=== PATIENT | female | born 1995 | race African-American/Black ===

== ENCOUNTER 2016-11-28 22:56 | Emergency (ER) | payer OTHER ==
--- NOTE | 2016-11-29 00:29 | Ultrasound Preliminary Report ---
Exam: US Duplex Ext Veins Right IMPRESSION: No evidence for deep venous thrombosis. [facility] SITE ID: [id number]
--- NOTE | 2016-11-29 00:32 | Ultrasound Report ---
EXAM: RIGHT LOWER EXTREMITY VENOUS ULTRASOUND EXAM DATE: 11/29/2016 12:15 AM. CLINICAL HISTORY: R calf pain s/p ACL repair 11/13/16. COMPARISON: None. TECHNIQUE: Real-time sonographic vascular imaging was performed by the round kiln drawer through the lower extremity utilizing both color-flow and Doppler spectral analysis. Multiple it sales representative static allen ges were saved for review. FINDINGS: Common Femoral Vein (CFV): Normal. CFV-GSV Junction: Normal. Profunda Femoral Vein (PFV): Normal. Femoral Vein (FV) Prox: Normal. Femoral Vein (FV) Mid: Normal. Femoral Vein (FV) Dist: Normal. Popliteal Vein: Normal. Posterior Tibial Veins: Normal. Peroneal Veins: Normal. Contralateral Side CFV: Normal. Other: Anterior knee fluid collection noted. IMPRESSION: No evidence for deep venous thrombosis. [facility] Referring Provider Line: [phone] SITE ID: [id number]
--- NOTE | 2016-11-29 00:45 | ED Physician Documentation ---
History of Present Illness - Stated complaint Stated Complaint: POST OP RT CALF SWELL - Chief complaint Chief Complaint: Ext Problem - History obtained from History obtained from: Patient, Friend - History of Present Illness Timing: Today Pain level max: 4 Pain level now: 4 Improved by: nothing Worsened by: nothing - Additonal information Additional information: Patient is a 20-year-old female who is status post a right ACL repair October at [facility]. She states that she noticed increased swelling and pain to the posterior portion of the knee/right calf today. She is still in a hinged knee brace that is locked at full extension. Is undergoing physical therapy. Has not had any fevers. No redness. Review of Systems Constitutional: denies: Fever, Chills Cardiac: denies: Chest pain / pressure Respiratory: denies: Dyspnea, Cough, Wheezing GI: denies: Abdominal Pain, Nausea, Vomiting, Diarrhea Skin: denies: Rash Musculoskeletal: denies: Neck pain, Back pain Neurologic: denies: Headache PD PAST MEDICAL HISTORY - Past Medical History Past Medical History: No - Past Surgical History Past Surgical History: Yes Ortho: ACL reconstruction - Present Medications Home Medications: Ambulatory Orders Medication Instructions Recorded Confirmed No Known Home Medications [No 11/28/16 11/28/16 Known Home Medications] - Allergies Allergies/Adverse Reactions: Allergies Allergy/AdvReac Type Severity Reaction Status Date / Time loracarbef [From Lorabid] Allergy Hives Verified 11/28/16 23:21 - Living Situation Living Arrangement: reports: At home - Social History Does the pt smoke?: No Does the pt have substance abuse?: No PD ED PE NORMAL - Vitals Vital signs reviewed: Yes - General General: Alert and oriented X 3, No acute distress - Cardiac Cardiac: RRR - Respiratory Respiratory: No respiratory distress, Clear bilaterally - Abdomen Abdomen: Soft, Non tender, Non distended - Derm Derm: Warm and dry, No rash - Extremities Extremities: Other (R LE mild swelling. mild posterior calf tenderness without cord. NVI. Incisions are healing well. no evidence of infection.) - Neuro Neuro: Alert and oriented X 3 - Psych Psych: Normal mood, Normal affect Results - Vitals Vitals: Vital Signs - 24 hr 11/28/16 11/29/16 23:21 00:55 Temperature 36.2 C L Heart Rate 66 70 Respiratory 16 16 Rate Blood Pressure 125/76 133/70 H O2 Saturation 100 99 Oxygen O2 Source Room air - Rads (name of study) R LE duplex US Radiology: Prelim report reviewed, EMP read contemporaneously, See rad report ( normal) PD MEDICAL DECISION MAKING - ED course Complexity details: considered differential, d/w patient, d/w family ED course: Patient with right calf pain and swelling status post ACL repair 3 weeks ago. No evidence of DVT. No evidence of cellulitis. Appears to have peripheral edema, likely from using the leg more. We will have her follow-up with her orthopedist for further evaluation and care. Patient counseled regarding signs and symptoms for which I believe and urgent re-evaluation would be necessary. Patient with good understanding of and agreement to plan and is comfortable going home at this time This document was made in part using voice recognition software. While efforts are made to proofread this document, sound alike and grammatical errors may occur. No evidence of septic joint Departure - Departure Disposition: 01 Home, Self Care Clinical Impression: Peripheral edema Condition: Good Instructions: ED Leg Swelling Unilateral Follow-Up: your,doctor in 1 week [Other] Comments: Your ultrasound is normal tonight. Return if you worsen. Discharge Date/Time: 11/29/16 00:55
[2016-11-29 01:02] VITALS: BP 133/70
== END 2016-11-29 00:55 | disposition home or self-care (01) ==
LOC: ED 22:56
DX: R60.0 Localized edema (principal)
CPT/HCPCS: 99283

== ENCOUNTER 2018-07-06 19:40 | Emergency (ER) | payer OTHER ==
[2018-07-06 20:24] LABS: BILIRUBIN,URINE NEGATIVE (NEGATIVE); GLUCOSE, URINE (UA) NEGATIVE (NEGATIVE); KETONES,URINE (UA) NEGATIVE (NEGATIVE); LEUKOCYTE ESTERASE, URINE NEGATIVE (NEGATIVE); NITRITE,URINE NEGATIVE (NEGATIVE); OCCULT BLOOD,URINE NEGATIVE (NEGATIVE); PH,URINE 6.5 PH (5.0-7.5); PROTEIN,URINE NEGATIVE (NEGATIVE); UROBILINOGEN,URINE 0.2 (NORMAL) E.U./dL (NORMAL)
[2018-07-06 20:25] LABS: CLARITY,URINE CLEAR (CLEAR); HCG UR QUAL NEGATIVE
--- NOTE | 2018-07-06 21:13 | ED Physician Documentation ---
PD HPI FEMALE - Stated complaint Stated Complaint: FEMALE - Chief complaint Chief Complaint: Abd Pain - History obtained from History obtained from: Patient - History of Present Illness Timing - onset: Other (22-year-old woman who had a sexual encounter 2 months ago. During which the condom broke. She was worried about STDs and was seen 3 days later and tested but results were subsequently negative. More recently over the last week she has had nonpainful and non-itching foul-smelling vaginal discharge without abdominal pain or fevers.) Review of Systems Constitutional: reports: Reviewed and negative Throat: reports: Reviewed and negative Cardiac: reports: Reviewed and negative Respiratory: reports: Reviewed and negative PD PAST MEDICAL HISTORY - Past Surgical History Past Surgical History: Yes Ortho: ACL reconstruction - Present Medications Home Medications: Ambulatory Orders Medication Instructions Recorded Confirmed No Known Home Medications 11/28/16 11/28/16 - Allergies Allergies/Adverse Reactions: Allergies Allergy/AdvReac Type Severity Reaction Status Date / Time loracarbef [From Lorabid] Allergy Hives Verified 07/06/18 19:46 - Social History Does the pt smoke?: No Smoking Status: Never smoker Does the pt have substance abuse?: No PD ED PE NORMAL - Vitals Vital signs reviewed: Yes - General General: Alert and oriented X 3, No acute distress - Abdomen Abdomen: Normal bowel sounds, Soft, Non tender - Female Female : Engineering Lab Technician present (Marizol ), Other (Modest thick white dischg without tenderness or cervicitis) - Derm Derm: Normal color, Warm and dry, No rash - Neuro Neuro: Alert and oriented X 3, Normal speech - Psych Psych: Normal mood, Normal affect Results - Vitals Vitals: Vital Signs - 24 hr 07/06/18 07/06/18 19:43 21:14 Temperature 36.8 C 36.8 C Heart Rate 74 66 Respiratory 16 18 Rate Blood Pressure 125/72 121/78 O2 Saturation 99 100 Oxygen O2 Source Room air - Labs Labs: Microbiology 07/06/18 21:25 Wet Prep - Final Vaginal Laboratory Tests 07/06/18 15:54 Urine Color YELLOW Urine Clarity CLEAR Urine pH 6.5 Ur Specific [place] 1.010 Urine Protein NEGATIVE Urine Glucose (UA) NEGATIVE Urine Ketones NEGATIVE Urine Occult Blood NEGATIVE Urine Nitrite NEGATIVE Urine Bilirubin NEGATIVE Urine Urobilinogen 0.2 (NORMAL) Ur Leukocyte Esterase NEGATIVE Ur Microscopic Review NOT INDICATED Urine Culture Comments NOT INDICATED Urine HCG, Qual NEGATIVE Departure - Departure Disposition: 01 Home, Self Care Clinical Impression: Vaginal discharge Condition: Good Record reviewed to determine appropriate education?: Yes Instructions: ED VD Cervicitis Treated Comments: Tests for yeast, bacterial vaginosis, and trichomoniasis came back negative. We are testing for gonorrhea and chlamydia which can also cause the symptoms, but results will not be done for about 2 to 3 days. The antibiotics we gave you here will fully cover you for either of these entities. We will still call if either of the tests are positive. Call your doctor to arrange a follow-up appointment, make the next available appointment. In the interim, return anytime if worse or if new symptoms develop.
[2018-07-06 21:15] VITALS: BP 121/78
[2018-07-06] MEDS ORDERED: AZITHROMYCIN 250 MG TABLET PO STA (21:37)
[2018-07-06] MEDS ORDERED: LIDOCAINE 1% 2 ML VIAL MC ONE (21:37)
[2018-07-06] MEDS ORDERED: cefTRIAXone 250 MG VIAL IM ONE (21:37)
== END 2018-07-06 22:12 | disposition home or self-care (01) ==
LOC: ED 19:40
DX: N89.8 Other specified noninflammatory disorders of vagina (principal)
CPT/HCPCS: 81003; 81025; 87210; 87491; 87591; 96372; 99282; 99283; A9270; 81001; 87086

== ENCOUNTER 2018-08-07 23:53 | Emergency (ER) | payer OTHER ==
--- NOTE | 2018-08-07 23:59 | ED Physician Documentation ---
PD HPI FEMALE - Stated complaint Stated Complaint: FEM - History obtained from History obtained from: Patient - History of Present Illness Timing - onset: How many days ago (3-4) Timing - details: Gradual onset Associated symptoms: Vaginal discharge, Dysuria. No: Fever, Pelvic pain, Vaginal pain, Genital sore/lesion Contributing factors: No: Recently seen: Emergency Dept (T+R last month) - Additional information Additional information: T+R last month in this ED, given rocephin and zithromax (both one-time doses to cover possible STDs, with subsequent negative GC/C result). Approximately 2 weeks ago, patient had vaginal d/c that was similar to previous vaginal candidiasis infections, and she thus took OTC monostat which resulted in resolution of discharge. She presents at this time due to 3-4 days of gradually increasing malodorous vaginal discharge Review of Systems Constitutional: denies: Fever GI: denies: Abdominal Pain : reports: Dysuria, Discharge. 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 : None HEENT: None Psych: None Musculoskeletal: None Derm: None - Past Surgical History Past Surgical History: Yes Ortho: ACL reconstruction - Present Medications Home Medications: Ambulatory Orders Medication Instructions Recorded Confirmed Metronidazole [Flagyl] 500 mg PO BID #13 tablet 08/08/18 - Allergies Allergies/Adverse Reactions: Allergies Allergy/AdvReac Type Severity Reaction Status Date / Time loracarbef [From Lorabid] Allergy Hives Verified 07/06/18 19:46 - Social History Does the pt smoke?: No Smoking Status: Never smoker Does the pt drink ETOH?: Yes Does the pt have substance abuse?: No - Immunizations Immunizations are current?: Yes - POLST Patient has POLST: No PD ED PE NORMAL - Vitals Vital signs reviewed: Yes - General General: Alert and oriented X 3, No acute distress, Well developed/nourished - Abdomen Abdomen: Soft, Non tender PD ED PE EXPANDED - Female Female : Normal external, Vaginal Discharge (scant thick, white discharge), Stamp Machine Servicer present. No: Skin lesions, CMT Results - Vitals Vitals: Vital Signs - 24 hr 08/07/18 23:59 Temperature 36.5 C Heart Rate 57 L Respiratory 18 Rate Blood Pressure 110/80 O2 Saturation 99 Oxygen O2 Source Room air - Labs Labs: Laboratory Tests 08/08/18 00:50 Urine Color YELLOW Urine Clarity CLEAR Urine pH 6.0 Ur Specific [place] >=1.030 H Urine Protein NEGATIVE Urine Glucose (UA) NEGATIVE Urine Ketones NEGATIVE Urine Occult Blood NEGATIVE Urine Nitrite NEGATIVE Urine Bilirubin NEGATIVE Urine Urobilinogen 0.2 (NORMAL) Ur Leukocyte Esterase NEGATIVE Ur Microscopic Review NOT INDICATED Urine Culture Comments NOT INDICATED Urine HCG, Qual NEGATIVE PD MEDICAL DECISION MAKING - ED course Complexity details: reviewed old records, considered differential, d/w patient Departure - Departure Disposition: 01 Home, Self Care Clinical Impression: Bacterial vaginosis Condition: Good Instructions: ED Vaginosis Bacterial Follow-Up: YIMI AMARAL MD [Primary Care Provider] - (3-5 days if not improving) Prescriptions: Metronidazole [Flagyl] 500 mg PO BID #13 tablet Discharge Date/Time: 08/08/18 02:30
[2018-08-08 00:02] VITALS: BP 110/80
[2018-08-08 00:57] LABS: BILIRUBIN,URINE NEGATIVE (NEGATIVE); GLUCOSE, URINE (UA) NEGATIVE (NEGATIVE); KETONES,URINE (UA) NEGATIVE (NEGATIVE); LEUKOCYTE ESTERASE, URINE NEGATIVE (NEGATIVE); NITRITE,URINE NEGATIVE (NEGATIVE); OCCULT BLOOD,URINE NEGATIVE (NEGATIVE); PROTEIN,URINE NEGATIVE (NEGATIVE); UROBILINOGEN,URINE 0.2 (NORMAL) E.U./dL (NORMAL)
[2018-08-08 00:58] LABS: CLARITY,URINE CLEAR (CLEAR)
[2018-08-08 00:59] LABS: HCG UR QUAL NEGATIVE
[2018-08-08] MEDS ORDERED: metroNIDAZOLE 250 MG TABLET PO STA (02:08)
[2018-08-08] MEDS ORDERED: FLUCONAZOLE 100 MG TABLET PO STA (02:10)
== END 2018-08-08 02:30 | disposition home or self-care (01) ==
LOC: ED 23:53
DX: N76.0 Acute vaginitis (principal); B96.89 Other specified bacterial agents as the cause of diseases classified elsewhere
CPT/HCPCS: 81003; 81025; 99283; 99284; A9270; 81001; 87086; 87210

== ENCOUNTER 2019-07-31 16:41 | Emergency (ER) | payer OTHER ==
--- NOTE | 2019-07-31 17:04 | ED Physician Documentation ---
PD HPI BACK PAIN - Stated complaint Stated Complaint: FALL/BACK PX/L ARM NUMBNESS - Chief complaint Chief Complaint: Back Pain - History obtained from History obtained from: Patient (Healthy 23-year-old woman was rollerskating today and slipped and fell backwards onto her butt. Complains of pain in the thoracic spine and briefly had a numbness in the left arm which is now gone. No other injuries. No possibility of . Declines pain medication on initial evaluation. 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 : None HEENT: None Psych: None Musculoskeletal: None Derm: None - Past Surgical History Past Surgical History: Yes Ortho: ACL reconstruction - Present Medications Home Medications: Ambulatory Orders Medication Instructions Recorded Confirmed metroNIDAZOLE [Flagyl] 500 mg PO BID #13 tablet 08/08/18 Cyclobenzaprine [Flexeril] 10 mg PO TID PRN #10 tablet 07/31/19 - Allergies Allergies/Adverse Reactions: Allergies Allergy/AdvReac Type Severity Reaction Status Date / Time loracarbef [From Lorabid] Allergy Hives Verified 07/06/18 19:46 - Social History Does the pt smoke?: No Smoking Status: Never smoker Does the pt drink ETOH?: Yes Does the pt have substance abuse?: No - Immunizations Immunizations are current?: Yes - POLST Patient has POLST: No PD ED PE NORMAL - Vitals Vital signs reviewed: Yes - General General: Alert and oriented X 3, No acute distress - Neck Neck: No bony TTP - Back Back: Other (Mild tenderness around T8, no deformity or limited range of motion.) - Extremities Extremities: Other (The patient has equal and normal Achilles and patellar r eflexes bilaterally. Normal sensation in all areas of the legs. Patient denies saddle anesthesia. Normal strength in flexion-extension at the ankles, knees, and flexion of the hips. Equal diet supervisor strength, thumb extension, flexion and extension at the wrist on both sides.) - Neuro Neuro: Alert and oriented X 3, Normal speech Results - Vitals Vitals: Vital Signs - 24 hr 07/31/19 16:45 Temperature 36.6 C Heart Rate 68 Respiratory 16 Rate Blood Pressure 129/78 O2 Saturation 100 Oxygen O2 Source Room air - Rads (name of study) T spine XR Radiology: EMP read contemporaneously Departure - Departure Disposition: 01 Home, Self Care Clinical Impression: Back sprain Condition: Good Record reviewed to determine appropriate education?: Yes Instructions: ED Low Back Pain Injury Prescriptions: Cyclobenzaprine [Flexeril] 10 mg PO TID PRN #10 tablet PRN Reason: Spasms Forms: Activity restrictions
--- NOTE | 2019-07-31 17:45 | XRAY Report ---
Reason: back inj Procedure Date: 07/31/2019 Accession Number: [id number] / [id number] Procedure: XR - Thoracic Spine 2 View CPT Code: Final Report FULL RESULT: EXAM: THORACIC SPINE RADIOGRAPHY EXAM DATE: 07/31/2019 05:23 PM. CLINICAL HISTORY: Back inj. COMPARISON: None. TECHNIQUE: 2 views. FINDINGS: Alignment: Normal. No spondylolisthesis or scoliosis. Bones: No fractures or bone lesions. Disks: Normal. Disk heights are maintained. Soft Tissues: Normal. The visualized lungs and cardiomediastinal silhouette are normal. IMPRESSION: Normal thoracic spine radiography. No acute displaced fracture or malalignment. [facility]
[2019-07-31 18:06] VITALS: BP 130/72
== END 2019-07-31 17:45 | disposition home or self-care (01) ==
LOC: ED 16:41
DX: S23.3XXA Sprain of ligaments of thoracic spine, initial encounter (principal); W01.0XXA Fall on same level from slipping, tripping and stumbling without subsequent striking against object, initial encounter; Y93.51 Activity, roller skating (inline) and skateboarding
CPT/HCPCS: 72070; 99283; 99284

== ENCOUNTER 2020-01-14 01:40 | Emergency (ER) | payer OTHER ==
--- NOTE | 2020-01-14 01:42 | ED Physician Documentation ---
PD HPI SKIN - Stated complaint Stated Complaint: HIVES - History obtained from History obtained from: Patient - History of Present Illness Timing - onset: Today (tonight) Timing - details: Abrupt onset Location: Bodywide (predominantly BUE/BLE) Improved by: Other (took benadryl RELIABILITY MANAGER without improvement) Contributing factors: Unknown Similar symptoms before: Has not had sx before Recently seen: Not recently seen - Additional information Additional information: c/o few hours of generalized pruritic rash, predominantly on extremities. No apparent triggers (no new soaps, detergents, medications, stings/bites). denies h/o similar symptoms. 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 : None HEENT: None Psych: None Musculoskeletal: None Derm: None - Past Surgical History Past Surgical History: Yes Ortho: ACL reconstruction - Present Medications Home Medications: Ambulatory Orders Medication Instructions Recorded Confirmed metroNIDAZOLE [Flagyl] 500 mg PO BID #13 tablet 08/08/18 Cyclobenzaprine [Flexeril] 10 mg PO TID PRN #10 tablet 07/31/19 hydrOXYzine pamoate [Hydroxyzine 25 mg PO Q6HR PRN #20 capsule 01/14/20 Pamoate] predniSONE [Prednisone] 40 mg PO DAILY 3 Days #6 tablet 01/14/20 - Allergies Allergies/Adverse Reactions: Allergies Allergy/AdvReac Type Severity Reaction Status Date / Time loracarbef [From Lorabid] Allergy Hives Verified 01/14/20 01:48 - Social History Does the pt smoke?: No Smoking Status: Never smoker Does the pt drink ETOH?: Yes Does the pt have substance abuse?: No - Immunizations Immunizations are current?: Yes - POLST Patient has POLST: No PD ED PE NORMAL - Vitals Vital signs reviewed: Yes - General General: Alert and oriented X 3, No acute distress, Well developed/nourished - HEENT HEENT: Pharynx benign - Respiratory Respiratory: No respiratory distress, Clear bilaterally PD ED PE EXPANDED - Derm Derm: Rash (faint urticaria on bilateral proximal thighs with lesser degree on BUE (proximally)) Results - Vitals Vitals: Vital Signs - 24 hr 01/14/20 01/14/20 01:46 02:10 Temperature 37.4 C Heart Rate 85 Respiratory 17 16 Rate Blood Pressure 127/70 O2 Saturation 100 Oxygen O2 Source Room air PD MEDICAL DECISION MAKING - ED course Complexity details: considered differential, d/w patient Departure - Departure Disposition: 01 Home, Self Care Clinical Impression: Allergic reaction Condition: Good Instructions: ED Allergic Reaction General Other Follow-Up: YIMI AMARAL MD [Primary Care Provider] - Prescriptions: hydrOXYzine pamoate [Hydroxyzine Pamoate] 25 mg PO Q6HR PRN #20 capsule PRN Reason: Itching predniSONE [Prednisone] 40 mg PO DAILY 3 Days #6 tablet Comments: You can try the hydroxyzine (prescription antihistamine) in place of the benadryl if you find the benadryl is ineffective. For some patients, the hydroxyzine provides improvement when the benadryl has not; it also tends to cause more drowsiness, which can be helpful if you cannot sleep due to itching. Discharge Date/Time: 01/14/20 02:10
[2020-01-14 01:48] VITALS: BP 127/70
[2020-01-14] MEDS ORDERED: predniSONE 20 MG TABLET PO STA (01:56)
== END 2020-01-14 02:10 | disposition home or self-care (01) ==
LOC: ED 01:40
DX: T78.40XA Allergy, unspecified, initial encounter (principal)
CPT/HCPCS: 99282; 99283; J7512

== ENCOUNTER 2020-09-25 08:04 | Emergency (ER) | payer OTHER ==
--- NOTE | 2020-09-25 08:21 | ED Physician Documentation ---
PD HPI URI - Stated complaint Stated Complaint: FEVER/COUGH - Chief complaint Chief Complaint: Resp - History obtained from History obtained from: Patient - History of Present Illness Timing - onset: How many days ago (5) Timing duration: Days (5) Timing details: Abrupt onset, Still present (worsening the past day with increased cough and yellow sputum production. faint wisps of blood in sputum too.) Contributing factors: Sick contact (close contact is recently positive for COVID), Unimmunized. No: Travel, COPD / asthma Improves by: No: Medication (Mucinex and Ibuprofen.) Worsened by: Activity Similar symptoms before: Has not had sx before Recently seen: Not recently seen Review of Systems Constitutional: reports: Fever, Chills, Myalgias Nose: reports: Rhinorrhea / runny nose, Congestion Throat: reports: Sore throat Cardiac: denies: Chest pain / pressure, Palpitations Respiratory: reports: Dyspnea, Cough. denies: Wheezing GI: reports: Nausea. 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 HEENT: None Psych: None Musculoskeletal: None Derm: None - Past Surgical History Past Surgical History: Yes Ortho: ACL reconstruction - Present Medications Home Medications: Ambulatory Orders Medication Instructions Recorded Confirmed metroNIDAZOLE [Flagyl] 500 mg PO BID #13 tablet 08/08/18 Cyclobenzaprine [Flexeril] 10 mg PO TID PRN #10 tablet 07/31/19 hydrOXYzine pamoate [Hydroxyzine 25 mg PO Q6HR PRN #20 capsule 01/14/20 Pamoate] predniSONE [Prednisone] 40 mg PO DAILY 3 Days #6 tablet 01/14/20 Albuterol Sulf [Ventolin Hfa 2 - 3 puffs INH Q4HR PRN #1 inhaler 09/25/20 Inhaler] Amoxicillin 500 mg PO TID #18 cap 09/25/20 Benzonatate [Tessalon] 100 mg PO TID PRN #20 cap 09/25/20 dexAMETHasone [Decadron] 4 mg PO DAILY #5 tablet 09/25/20 - Allergies Allergies/Adverse Reactions: Allergies Allergy/AdvReac Type Severity Reaction Status Date / Time loracarbef [From Lorabid] Allergy Hives Verified 09/25/20 08:18 - Social History Does the pt smoke?: No Smoking Status: Never smoker Does the pt drink ETOH?: Yes Does the pt have substance abuse?: No - Immunizations Immunizations are current?: Yes - POLST Patient has POLST: No PD ED PE NORMAL - Vitals Vital signs reviewed: Yes - General General: Alert and oriented X 3, No acute distress, Well developed/nourished - HEENT HEENT: EOMI, Moist mucous membranes, Pharynx benign - Neck Neck: No bony TTP, Thyroid normal - Cardiac Cardiac: RRR, No murmur - Respiratory Respiratory: Clear bilaterally - Abdomen Abdomen: Soft, Non tender - Derm Derm: Normal color, Warm and dry, No rash - Extremities Extremities: Normal ROM s pain - Neuro Neuro: Alert and oriented X 3, No motor deficit, Normal speech Results - Vitals Vitals: Oxygen O2 Source Nasal cannula - Labs Labs: Laboratory Tests 09/25/20 09:17 Coronavirus (PCR) POSITIVE - Rads (name of study) chest xray Radiology: Prelim report reviewed (no infiltrates), See rad report PD MEDICAL DECISION MAKING - ED course Complexity details: re-evaluated patient (no other medical problems and not overweight. Not likely qualifying for monoclonal antibodies. ), considered differential (presumed COVID with symptoms and exposure. PPE worn during exam. Having worse cough with now sputum productiion and could not say there is not secondary infecction. ), d/w patient Departure - Departure Disposition: 01 Home, Self Care Clinical Impression: Acute lower respiratory infection, Close exposure to COVID-19 virus Condition: Stable Record reviewed to determine appropriate education?: Yes Instructions: ED Upper Resp Infec Abx Tx, ED Pneumonia Adult Follow-Up: ANGELLA GARCIA DO [Primary Care Provider] - Prescriptions: Albuterol Sulf [Ventolin Hfa Inhaler] 2 - 3 puffs INH Q4HR PRN #1 inhaler PRN Reason: Shortness Of Air/Wheezing Amoxicillin 500 mg PO TID #18 cap dexAMETHasone [Decadron] 4 mg PO DAILY #5 tablet Benzonatate [Tessalon] 100 mg PO TID PRN #20 cap PRN Reason: Cough Comments: Your chest x-ray shows a small patch of pneumonia in the lower lung. Your symptoms would suggest some irritation of the bronchioles as well given the cough and also some blood in the sputum. This could all be a viral illness such as Covid. However its hard to know if there is a secondary infection that is bacterial as well. Stay well-hydrated and continue Tylenol every 4-6 hours if needed for fevers or mild pains. Mucinex is helpful for cough as well. Add Tessalon/benzonatate if needed for cough suppression. For the bronchial irritation and infection, we will add Decadron steroid to help with inflammation of the airways and albuterol inhaler 2 to 3 puffs 4 times a day regularly to help with breathing. For concern of bacterial infection as well, take amoxicillin 3 times a day as directed. Follow-up with your primary care in the next 2 to 3 days for reevaluation. Off work in the meanwhile until you are feeling better and also pending your Covid test results. You have a Covid test pending. You need to self quarantine until the result is done and negative. Do not leave your house. Do not get near anybody. The results should be done in 48 to 72 hours, but sometimes longer. We will call with a positive result, the fastest way to get a negative result for confirmation though is to go to the hospital website at [email or web address], click on the my [email or web address] tab and sign up for the patient portal. If any friends or family get sick and would like to have a Covid test done, but do not have signs or symptoms that would necessitate being hospitalized, we encourage testing through our coronavirus swabbing station, call [phone] to schedule an appointment. Forms: Activity restrictions Discharge Date/Time: 09/25/20 10:03
[2020-09-25] MEDS: ALBUTEROL 1 PUFF INH STA (09:01)
[2020-09-25] MEDS: DEXAMETHASONE 10 MG/ML VIAL PO STA (09:09)
[2020-09-25] MEDS: ACETAMINOPHEN 325 MG TABLET PO STA (09:09)
[2020-09-25] MEDS: CHERRY SYRUP 10 ML UDC PO ONE (09:09)
[2020-09-25] MEDS: BENZONATATE 100 MG CAPSULE PO STA (09:09)
--- NOTE | 2020-09-25 09:11 | XRAY Report ---
PROCEDURE: Chest 1 View X-Ray INDICATIONS: Cough and fever for 4-5 days TECHNIQUE: One view of the chest was acquired. COMPARISON: Thoracic spine radiographs 07/31/2019 FINDINGS: Surgical changes and devices: None. Lungs and pleura: No pleural effusions or pneumothorax. Subtle patchy airspace opacity in the left g reater than right infrahilar regions. Mediastinum: Mediastinal contours appear normal. Heart size is normal. Bones and chest wall: No suspicious bony lesions. Overlying soft tissues appear unremarkable. IMPRESSION: Subtle patchy airspace opacity in the infrahilar regions, left greater than right. Findings are nonsp ecific but would be consistent with atypical pneumonia. Reviewed by: Sebastián Chan MD on 09/25/2020 9:10 AM PDT Approved by: Sebastián Chan MD on 09/25/2020 9:10 AM PDT Station ID: [id number]
[2020-09-25] MEDS: AMOXICILLIN 250 MG CAPSULE PO STA (09:49)
[2020-09-25 10:05] VITALS: BP 125/70
== END 2020-09-25 10:03 | disposition home or self-care (01) ==
LOC: ED 08:04
DX: U07.1 COVID-19 (principal); J12.82 Pneumonia due to coronavirus disease 2019; J22 Unspecified acute lower respiratory infection
CPT/HCPCS: 71045; 87635; 94640; 99284; A9270

== ENCOUNTER 2020-10-01 11:44 | Outpatient (CLI) | payer OTHER | END 2020-10-01 11:45 | disposition critical access hospital (66) | LOC: EMS 11:44 | DX: R06.02 Shortness of breath (principal) | CPT/HCPCS: A0425; A0429 ==

== ENCOUNTER 2020-10-01 12:28 | Emergency (ER) | payer OTHER ==
--- NOTE | 2020-10-01 12:54 | ED Physician Documentation ---
PD HPI DYSPNEA - Stated complaint Stated Complaint: SOA/C+ - Chief complaint Chief Complaint: Resp - History obtained from History obtained from: Patient - History of Present Illness Timing - onset: How many days ago (about 10 days of illness at this point.) Timing - onset during: Light activity Timing - details: Gradual onset, Still present Inciting event(s): URI Improved by: Inhaler/neb (some improved but not well anymore) Worsened by: Exertion, Coughing Associated symptoms: Fever, Cough, Wheezing. No: Chest pain / discomfort, Bilateral edema, Unilateral edema Similar symptoms before: Has not had sx before Recently seen: Emergency Dept (seen 6 days ago for early symptoms and Rx with MDI/steoribethanie/tessalon and Amox for concern of pneumonia. Had COVID test that resulted positive next day. Patient states worsened breathing the past couple of days. [facility] would not see her, per patient, and referred her to the ER.) Review of Systems Constitutional: reports: Fever, Chills Nose: reports: Congestion. denies: Rhinorrhea / runny nose Throat: denies: Sore throat Cardiac: denies: Chest pain / pressure Respiratory: reports: Dyspnea, Cough, Wheezing GI: denies: Nausea, Vomiting, Diarrhea Skin: denies: Rash, Lesions Neurologic: denies: Altered mental status, Headache PD PAST MEDICAL HISTORY - Past Medical History Cardiovascular: None Respiratory: None Neuro: None Endocrine/Autoimmune: None GI: None DISMANTLER: None : None HEENT: None Psych: None Musculoskeletal: None Derm: None - Past Surgical History Past Surgical History: Yes Ortho: ACL reconstruction - Present Medications Home Medications: Ambulatory Orders Medication Instructions Recorded Confirmed dexAMETHasone [Decadron] 4 mg PO DAILY #5 tablet 10/01/20 diphenhydrAMINE ELIXIR [Benadryl 25 mg PO Q6H PRN #240 ml 10/01/20 Elixir] - Allergies Allergies/Adverse Reactions: Allergies Allergy/AdvReac Type Severity Reaction Status Date / Time loracarbef [From Lorabid] Allergy Hives Verified 10/01/20 12:37 - Social History Does the pt smoke?: No Smoking Status: Never smoker Does the pt drink ETOH?: Yes Does the pt have substance abuse?: No - Immunizations Immunizations are current?: Yes - POLST Patient has POLST: No PD ED PE NORMAL - Vitals Vital signs reviewed: Yes - General General: Alert and oriented X 3, Well developed/nourished, Other (somewhat anxious, tachypneic, with sats 93-94%. Mild work of breathing. ) - HEENT HEENT: Ears normal, Moist mucous membranes, Pharynx benign - Neck Neck: Supple, no meningeal sign, No adenopathy - Cardiac Cardiac: RRR, No murmur - Respiratory Respiratory: No: Clear bilaterally (some wheezing diffusely. ) - Abdomen Abdomen: Soft, Non tender - Derm Derm: Normal color, Warm and dry Results - Vitals Vitals: Vital Signs - 24 hr 10/01/20 10/01/20 10/01/20 12:38 13:52 14:44 Temperature 37.6 C 37.1 C Heart Rate 81 86 74 Respiratory 30 H 18 30 H Rate Blood Pressure 122/85 H 125/82 H O2 Saturation 93 97 10/01/20 16:00 Temperature 37.2 C Heart Rate 75 Respiratory 28 H Rate Blood Pressure 120/79 O2 Saturation 98 Oxygen O2 Source Room air - Rads (name of study) chest xray Radiology: Prelim report reviewed (increased interstitial infiltrates c/w viral pneumonia. ), See rad report PD MEDICAL DECISION MAKING - ED course Complexity details: reviewed results, re-evaluated patient (imnproved with neb treatment. Sats are up from 93-94% prior to 98% after. She is agreeable to -mab treatment and I talked with Pharmacy and she qualifies. Got that in ER and prolonged ER stay by couple hours per protocol of the infusion. ), considered differential, d/w patient ED course: patient not ill enough for hospitalization. Improved breathing with neb treatment, and given MDI spacer with teaching to improve the effectiveness of her MDI. WIll redose steroids. Not seeing role for abx since clearly viral/COVID and not improved with abx on first round of treatments. Departure - Departure Disposition: 01 Home, Self Care Clinical Impression: Pneumonia due to COVID-19 virus, Acute dyspnea Condition: Stable Record reviewed to determine appropriate education?: Yes Follow-Up: [facility] [Provider Group] Prescriptions: diphenhydrAMINE ELIXIR [Benadryl Elixir] 25 mg PO Q6H PRN #240 ml PRN Reason: Cough dexAMETHasone [Decadron] 4 mg PO DAILY #5 tablet Comments: Your chest x-ray does show some increased infiltrates consistent with viral pneumonia. Your oxygenation is still good at 95 to 98%. You have been ill for 10 days order expect this to be plateauing soon and starting to diminish in symptoms. Return if worsening over the next few days. Meanwhile continue the albuterol inhaler with spacer 3 to 4 puffs every 4-6 hours to help with breathing. Decadron steroid daily for 5 more days to help with inflammation of the airway. Add diphenhydramine liquid as needed for cough. Tylenol or ibuprofen as needed for fevers and pains. Follow-up with your primary care in the next couple of days for reassessment and recheck of your oxygenation. Discharge Date/Time: 10/01/20 17:34
[2020-10-01] MEDS ORDERED: ALBUTEROL NEB 2.5 MG/3 ML INH STA (13:23)
[2020-10-01] MEDS ORDERED: SODIUM CHLORIDE 0.9% 1,000 ML IV STA (13:23)
[2020-10-01] MEDS ORDERED: diphenhydrAMINE ELIXIR 25 MG/10 ML UDC PO STA (13:24)
[2020-10-01] MEDS ORDERED: DEXAMETHASONE 10 MG/ML VIAL IVP STA (13:24)
[2020-10-01] MEDS ORDERED: [UNRECOGNIZED DRUG - OTHER] IV ONE (13:45)
--- NOTE | 2020-10-01 14:07 | XRAY Report ---
PROCEDURE: Chest 1 View X-Ray INDICATIONS: dyspnea, covid positive TECHNIQUE: One view of the chest was acquired. COMPARISON: Chest x-ray 09/25/2020 FINDINGS: Surgical changes and devices: None. Lungs and pleura: In interval since the prior exam, there is been development of bilateral patchy pul monary opacities predominantly within the bases. Mediastinum: Mediastinal contours appear normal. Heart size is normal. Bones and chest wall: No suspicious bony lesions. Overlying soft tissues appear unremarkable. IMPRESSION: Interval development of bilateral pulmonary opacities suggestive of pneumonia. Reviewed by: Nette Berkowitz MD on 10/01/2020 2:05 PM PDT Approved by: Nette Berkowitz MD on 10/01/2020 2:05 PM PDT Station ID: [id number]
[2020-10-01 16:02] VITALS: BP 120/79
== END 2020-10-01 17:34 | disposition home or self-care (01) ==
LOC: ED 12:28
DX: U07.1 COVID-19 (principal); J12.82 Pneumonia due to coronavirus disease 2019
CPT/HCPCS: 71045; 94640; 96374; 99284; A9270; J7040; M0243; Q0243

== ENCOUNTER 2020-10-09 00:33 | Emergency (ER) | payer OTHER ==
--- NOTE | 2020-10-09 00:38 | ED Physician Documentation ---
PD HPI LOWER EXT INJURY - Stated complaint Stated Complaint: L FOOT PX - History obtained from History obtained from: Patient - History of Present Illness PD HPI LOW EXT INJURY LOCATION: Right, Left, Foot, Toe Type of injury: No: Fall, Twist Where injury occurred: Home Timing - onset: Today (she has noted several hours of cramps/spasms feeling of toes and foot. No noted injury. She states she feels she has been hydrating okay. No discoloration. Was on abx and steroids recently for COVID and possible secondary bronchitis/pneumonia and has been feeling improved re: breathing /dyspnea.) Timing - duration: Hours Timing - details: Abrupt onset, Waxing and waning (muscle cramp in foot initially and now with toes feeling "twitching" spasms. Has both legs. No edema. Arms and face feel okay.) Worsened by: Moving Associated symptoms: No: Weakness, Numbness, Swelling Similar symptoms before: Has not had sx before Recently seen: Emergency Dept (14 days ago with cough/fever and tested positive COVID. Seen again 8 days ago with increased dyspnea. Got Mab therapy. Rx with steroids and Doxy as symptoms suggested possible secondary infection. Improved the past 4-5 days. Done abx/steroids 3 days ago.) Review of Systems Constitutional: reports: Myalgias (with recent viral illness but has generally been feeling better the past several days.). 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 : None HEENT: None Psych: None Musculoskeletal: None Derm: None - Past Surgical History Past Surgical History: Yes Ortho: ACL reconstruction - Present Medications Home Medications: Ambulatory Orders Medication Instructions Recorded Confirmed tiZANidine [Zanaflex] 4 mg PO Q8H PRN #12 tablet 10/09/20 - Allergies Allergies/Adverse Reactions: Allergies Allergy/AdvReac Type Severity Reaction Status Date / Time loracarbef [From Lorabid] Allergy Hives Verified 10/09/20 00:45 - Social History Does the pt smoke?: No Smoking Status: Never smoker Does the pt drink ETOH?: Yes Does the pt have substance abuse?: No - Immunizations Immunizations are current?: Yes - POLST Patient has POLST: No PD ED PE NORMAL - Vitals Vital signs reviewed: Yes - General General: Alert and oriented X 3, No acute distress, Well developed/nourished - Cardiac Cardiac: RRR, No murmur - Respiratory Respiratory: Clear bilaterally - Abdomen Abdomen: Soft, Non tender - Back Back: No CVA TTP - Derm Derm: Normal color, Warm and dry, No rash - Extremities Extremities: No tenderness to palpate, Normal ROM s pain, No edema, No calf tenderness / cord, Other (normal pulses around ankle/foot. ) - Neuro Neuro: Alert and oriented X 3, No motor deficit, No sensory deficit, Normal speech, Other (noted is some twitching type movements involuntary of middle toes left foot currently. Normal color and cap refill. Voluntary movement overcomes it. ) Results - Vitals Vitals: Vital Signs - 24 hr 10/09/20 00:43 Temperature 36.8 C Heart Rate 74 Respiratory 18 Rate Blood Pressure 127/83 H O2 Saturation 99 Oxygen O2 Source Room air - Labs Labs: Laboratory Tests 10/09/20 10/09/20 10/09/20 01:20 01:20 01:20 WBC 3.5 L RBC 4.94 Hgb 13.4 Hct 42.2 MCV 85.4 MCH 27.1 MCHC 31.8 L RDW 13.4 Plt Count 414 MPV 9.1 Neut # (Auto) 1.0 L Lymph # (Auto) 2.2 [place] # (Auto) 0.3 Eos # (Auto) 0.0 Baso # (Auto) 0.0 Absolute Nucleated RBC 0.00 Nucleated RBC % 0.0 Sodium 139 Potassium 4.2 Chloride 104 Carbon Dioxide 26 Anion Gap 9.0 BUN 30 H Creatinine 1.0 Estimated GFR (MDRD) 81 L Glucose 103 H Calcium 8.9 Magnesium 2.3 Total Bilirubin 0.4 AST 13 ALT 23 Alkaline Phosphatase 76 Total Protein 7.0 Albumin 3.7 Globulin 3.3 Albumin/Globulin Ratio 1.1 Lipase 52 H TSH 1.50 PD MEDICAL DECISION MAKING - ED course Complexity details: re-evaluated patient (gave Robaxin muscle relaxant while getting labs and patient states still having little twitches in toes at times. Lytes are okay on labs, but can try added Mag extra. ), considered differential (cramps and small muscle twitching spasms suggestive of lytes/hydration concern. Normal color/cap refill/pulses feet/toes. Does not seem vascular issue. ), d/w patient Departure - Departure Disposition: 01 Home, Self Care Clinical Impression: Muscle spasms of lower extremity Qualifiers: Laterality: bilateral Qualified Code(s): M62.838 - Other muscle spasm Condition: Stable Record reviewed to determine appropriate education?: Yes Instructions: ED Spasm Muscle Follow-Up: ANGELLA GARCIA DO [Primary Care Provider] - Prescriptions: tiZANidine [Zanaflex] 4 mg PO Q8H PRN #12 tablet PRN Reason: Spasms Comments: The circulation in your legs appears normal. Your blood tests evaluating for blood sugar, electrolytes and kidney function are normal. I would consider possibly under hydration as a cause for some of the muscle spasms. Stay well- hydrated and you could use some Tylenol or ibuprofen if you develop any pains with the spasms. Tizanidine muscle relaxant short term if needed for spasms. I would anticipate improvement in the short-term. Discharge Date/Time: 10/09/20 02:26
[2020-10-09 00:45] VITALS: BP 127/83
[2020-10-09] MEDS ORDERED: methocarbamoL 500 MG TABLET PO STA (01:04)
[2020-10-09 01:23] LABS: BASOPHILS % (AUTO) 0.6 %; EOSINOPHILS % (AUTO) 0.9 %; HCT - HEMATOCRIT 42.2 % (37.0-47.0); HGB - HEMOGLOBIN 13.4 g/dL (12.0-16.0); LYMPHOCYTES # (AUTO) 2.2 10^3/uL (1.5-3.5); LYMPHOCYTES % (AUTO) 63.2 %; MEAN CORPUSCULAR HEMOGLOBIN 27.1 pg (27.0-31.0); MEAN CORPUSCULAR HGB CONC 31.8 g/dL (32.0-36.0); MEAN CORPUSCULAR VOLUME 85.4 fL (81.0-99.0); MEAN PLATELET VOLUME 9.1 fL (7.9-10.8); MONOCYTES # (AUTO) 0.3 10^3/uL (0.0-1.0); MONOCYTES % (AUTO) 7.2 %; NEUTROPHILS % (AUTO) 27.8 %; PLT - PLATELET COUNT 414 10^3/uL (130-450); RED BLOOD COUNT 4.94 10^6/uL (4.20-5.40); RED CELL DISTRIBUTION WIDTH 13.4 % (12.0-15.0); WHITE BLOOD COUNT 3.5 x10^3/uL (4.8-10.8)
[2020-10-09 01:43] LABS: ALBUMIN 3.7 g/dL (3.2-5.5); ALBUMIN/GLOBULIN RATIO 1.1 (1.0-2.2); BILIRUBIN,TOTAL 0.4 mg/dL (0.2-1.0); CALCIUM 8.9 mg/dL (8.5-10.3); MAGNESIUM 2.3 mg/dL (1.7-2.8); POTASSIUM 4.2 mmol/L (3.5-5.0)
[2020-10-09] MEDS ORDERED: MAGNESIUM OXIDE 400 MG TABLET PO STA (02:08)
== END 2020-10-09 02:26 | disposition home or self-care (01) ==
LOC: ED 00:33
DX: M62.838 Other muscle spasm (principal)
CPT/HCPCS: 36415; 80053; 83690; 83735; 84443; 85025; 99283; A9270

== ENCOUNTER 2020-10-11 13:27 | Outpatient (CLI) | payer OTHER | END 2020-10-11 13:28 | disposition critical access hospital (66) | LOC: EMS 13:27 | DX: R25.3 Fasciculation (principal); R25.2 Cramp and spasm | CPT/HCPCS: A0425; A0427 ==

== ENCOUNTER 2020-10-11 13:43 | Emergency (ER) | payer OTHER ==
[2020-10-11] MEDS ORDERED: LORazepam 2 MG/ML VIAL IVP STA (13:57)
--- NOTE | 2020-10-11 14:01 | ED Physician Documentation ---
PD HPI BACK PAIN - Stated complaint Stated Complaint: DIZZY - History obtained from History obtained from: Patient, EMS - Additional information Additional information: 24-year-old woman was previously healthy, developed symptomatic Covid diagnosed couple of weeks ago. She home quarantine and was quite ill for a couple of weeks, but feels better from that perspective. She was seen by my partner a couple of days ago for new onset left foot spasms. She was placed on tizanidine which was not helpful. She notes that the spasms are generally getting worse. 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 That has resolved but continues to have low back pressure and left greater than right foot spasming. 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 : None HEENT: None Psych: None Musculoskeletal: None Derm: None - Past Surgical History Past Surgical History: Yes Ortho: ACL reconstruction - Present Medications Home Medications: Ambulatory Orders Medication Instructions Recorded Confirmed tiZANidine [Zanaflex] 4 mg PO Q8H PRN #12 tablet 10/09/20 Ketorolac [Toradol] 10 mg PO Q4HR PRN 10/11/20 10/11/20 LORazepam [Ativan] 1 mg PO TID PRN #20 tablet 10/11/20 - Allergies Allergies/Adverse Reactions: Allergies Allergy/AdvReac Type Severity Reaction Status Date / Time loracarbef [From Lorabid] Allergy Hives Verified 10/11/20 14:09 - Social History Does the pt smoke?: No Smoking Status: Never smoker Does the pt drink ETOH?: Yes Does the pt have substance abuse?: No - Immunizations Immunizations are current?: Yes - POLST Patient has POLST: No PD ED PE NORMAL - Vitals Vital signs reviewed: Yes - General General: Alert and oriented X 3, No acute distress - HEENT HEENT: PERRL, EOMI, Dentition benign - Neck Neck: Supple, no meningeal sign, No bony TTP, No bruit - Cardiac Cardiac: RRR, No murmur - Respiratory Respiratory: No respiratory distress, Clear bilaterally - Abdomen Abdomen: Normal bowel sounds, Soft, Non tender - Back Back: No CVA TTP, No spinal TTP - Derm Derm: Normal color - Extremities Extremities: Other (Her toes of the left foot are spasming and flexing uncontrollably. She is generally hyperreflexic in the lower extremities but without clonus. 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, No motor deficit, No sensory deficit, Normal speech Eye Opening: Spontaneous Motor: Obeys Commands Verbal: Oriented GCS Score: 15 - Psych Psych: Normal mood, Normal affect Results - Vitals Vitals: Vital Signs - 24 hr 10/11/20 13:56 Temperature 36.5 C Heart Rate 94 Respiratory 16 Rate Blood Pressure 136/108 H O2 Saturation 100 Oxygen O2 Source Room air - Labs Labs: Laboratory Tests 10/11/20 10/11/20 10/11/20 15:19 15:19 15:19 WBC 3.1 L RBC 5.36 Hgb 14.6 Hct 45.2 MCV 84.3 MCH 27.2 MCHC 32.3 RDW 13.5 Plt Count 377 MPV 9.5 Neut # (Auto) 1.5 Lymph # (Auto) 1.4 L [place] # (Auto) 0.3 Eos # (Auto) 0.0 Baso # (Auto) 0.0 Absolute Nucleated RBC 0.00 Nucleated RBC % 0.0 VBG pH 7.402 VBG pCO2 44.2 VBG pO2 28.0 VBG HCO3 26.9 VBG Total CO2 28.2 VBG O2 Saturation 57.8 L VBG Base Excess 1.7 Sodium 136 Potassium 4.1 Chloride 100 L Carbon Dioxide 26 Anion Gap 10.0 BUN 12 Creatinine 1.0 Estimated GFR (MDRD) 81 L Glucose 77 Calcium 9.2 Magnesium 2.2 Total Bilirubin 0.7 AST 18 ALT 18 Alkaline Phosphatase 46 Total Protein 7.6 Albumin 4.1 Globulin 3.5 Albumin/Globulin Ratio 1.2 Lipase 36 PD MEDICAL DECISION MAKING - ED course ED course: 24-year-old woman presents after an episode that definitely could be psychosomatic, doesn't really fit a specific pattern of disease, but given the recent coronavirus, back pressure and worsening neurologic symptoms in the lower extremities, transverse myelitis is also a possibility. After discussion with the radiologist, Dr. Dietz we agreed to obtain a MRI of the lumbar and thoracic spine with and without contrast. T and L-spine MRI were negative, she does have the expected post Covid pneumonia appearance in her lungs which was already known from a chest x-ray the other day. Her foot twitching went away with Ativan. Departure - Departure Disposition: Home, Self Care Clinical Impression: Pneumonia due to COVID-19 virus, Weakness Muscle spasms of lower extremity Qualifiers: Laterality: left Qualified Code(s): M62.838 - Other muscle spasm Condition: Good Record reviewed to determine appropriate education?: Yes Instructions: COVID-19 [facility] Prescriptions: LORazepam [Ativan] 1 mg PO TID PRN #20 tablet PRN Reason: Anxiety Comments: Your MRI of the spine is normal. You still need to quarantine as previously discussed. I am writing you a prescription for the muscle that worked for the muscle spasms here. Return for new or worsening symptoms. Follow-up with your doctor if not improved. Do not drink or drive while taking lorazepam.
[2020-10-11] MEDS ORDERED: GADOBUTROL 10 MMOL/10 ML VIAL ONE (14:34)
[2020-10-11] MEDS ORDERED: SODIUM CHLORIDE 0.9% 1,000 ML IV STA (15:05)
[2020-10-11 15:24] LABS: BASOPHILS % (AUTO) 0.3 %; HCT - HEMATOCRIT 45.2 % (37.0-47.0); HGB - HEMOGLOBIN 14.6 g/dL (12.0-16.0); LYMPHOCYTES # (AUTO) 1.4 10^3/uL (1.5-3.5); LYMPHOCYTES % (AUTO) 43.3 %; MEAN CORPUSCULAR HEMOGLOBIN 27.2 pg (27.0-31.0); MEAN CORPUSCULAR HGB CONC 32.3 g/dL (32.0-36.0); MEAN CORPUSCULAR VOLUME 84.3 fL (81.0-99.0); MEAN PLATELET VOLUME 9.5 fL (7.9-10.8); MONOCYTES # (AUTO) 0.3 10^3/uL (0.0-1.0); NEUTROPHILS # (AUTO) 1.5 10^3/uL (1.5-6.6); NEUTROPHILS % (AUTO) 47.1 %; PLT - PLATELET COUNT 377 10^3/uL (130-450); RED BLOOD COUNT 5.36 10^6/uL (4.20-5.40); RED CELL DISTRIBUTION WIDTH 13.5 % (12.0-15.0); VBG BASE EXCESS 1.7 mmol/L (-2 - +2); VBG HCO3 26.9 mmol/L (23-28); VBG OXYGEN SATURATION 57.8 % (60-80); VBG PCO2 44.2 mmHg (41-51); VBG PH 7.402 (7.31-7.41); VBG TOTAL CO2 28.2 mmol/L (24-29); WHITE BLOOD COUNT 3.1 x10^3/uL (4.8-10.8)
[2020-10-11 15:43] LABS: ALBUMIN 4.1 g/dL (3.2-5.5); ALBUMIN/GLOBULIN RATIO 1.2 (1.0-2.2); BILIRUBIN,TOTAL 0.7 mg/dL (0.2-1.0); CALCIUM 9.2 mg/dL (8.5-10.3); MAGNESIUM 2.2 mg/dL (1.7-2.8); POTASSIUM 4.1 mmol/L (3.5-5.0); TOTAL PROTEIN 7.6 g/dL (6.7-8.2)
[2020-10-11] MEDS ORDERED: GADOBUTROL 10 MMOL/10 ML VIAL IVP ONE (17:18)
--- NOTE | 2020-10-11 17:27 | MRI Report ---
PROCEDURE: Lumbar Spine W/WO INDICATIONS: back pain, LE neuro sx, eval for post-covid TM CONTRAST: IV CONTRAST: Gadavist ml: 7 TECHNIQUE: Noncontrast sagittal T1 spin echo and T2 fast spin echo, sagittal STIR, axial T1 and T2 fast spin ech o through the lumbar spine. In cases with scoliosis, additional coronal T2 fast spin echo may be per formed. After the administration of contrast, sagittal and axial T1 spin echo with fat saturation th rough the lumbar spine. COMPARISON: None. FINDINGS: Image quality: Excellent. Alignment and curvature: There is normal bony alignment. Marrow: Marrow is of normal overall signal. No acute vertebral body compression fractures. No susp icious marrow enhancement. Spinal cord: Conus medullaris terminates at the L1-2 disc level. Visualized spinal cord demonstrate s normal signal, without suspicious enhancement. Paraspinous soft tissues: No paravertebral masses or abnormal enhancement. T12-L1: Normal in appearance. L1-L2: Normal in appearance. L2-L3: Normal in appearance. L3-L4: Normal in appearance. L4-L5: Normal in appearance. L5-S1: Normal in appearance. IMPRESSION: 1. Normal examination. 2. No central stenosis. 3. No neural foraminal narrowing. 4. No neural compression. 5. No abnormal spinal cord signal or suspicious postcontrast enhancement. Reviewed by: Mary Esparza MD, PhD on 10/11/2020 5:26 PM PDT Approved by: Mary Esparza MD, PhD on 10/11/2020 5:26 PM PDT Station ID: [id number]
--- NOTE | 2020-10-11 17:36 | MRI Report ---
PROCEDURE: Thoracic Spine W/WO INDICATIONS: back pain, LE neuro sx, eval for post-covid TM CONTRAST: IV CONTRAST: Gadavist ml: 7 TECHNIQUE: Noncontrast sagittal T1 spin echo and T2 fast spin echo, sagittal STIR, axial T1 and T2 fast spin ech o through the thoracic spine. After the administration of contrast, axial and sagittal T1 spin echo with fat saturation through the thoracic spine. COMPARISON: None. FINDINGS: Image quality: Excellent. Alignment and curvature: There is normal bony alignment. Marrow: Marrow is of normal overall signal. No acute vertebral body compression fractures. Spinal cord: Visualized spinal cord is of normal signal and size, without abnormal enhancement. Paraspinous soft tissues: No paravertebral masses or abnormal enhancement. Miscellaneous: Central canal and foramina appear widely patent at all scanned levels. IMPRESSION: 1. Normal MRI of the thoracic spine. 2. No abnormal spinal cord signal or suspicious postcontrast enhancement. 3. No central stenosis. 4. No neural foraminal narrowing. 5. No neural compression. 6. Bilateral lung peripheral patchy consolidation likely related to patient's known COVID disease. Reviewed by: Mary Esparza MD, PhD on 10/11/2020 5:35 PM PDT Approved by: Mary Esparza MD, PhD on 10/11/2020 5:35 PM PDT Station ID: [id number]
[2020-10-11] MEDS ORDERED: LORazepam 1 MG TABLET PO STA (17:43)
[2020-10-11 17:54] LABS: BILIRUBIN,URINE NEGATIVE (NEGATIVE); GLUCOSE, URINE (UA) NEGATIVE (NEGATIVE); KETONES,URINE (UA) NEGATIVE (NEGATIVE); LEUKOCYTE ESTERASE, URINE NEGATIVE (NEGATIVE); NITRITE,URINE NEGATIVE (NEGATIVE); OCCULT BLOOD,URINE NEGATIVE (NEGATIVE); PH,URINE 7.5 PH (5.0-7.5); PROTEIN,URINE NEGATIVE (NEGATIVE); UROBILINOGEN,URINE 0.2 (NORMAL) E.U./dL (NORMAL)
[2020-10-11 17:56] LABS: CLARITY,URINE CLEAR (CLEAR); HCG UR QUAL NEGATIVE
[2020-10-11 18:23] VITALS: BP 123/68
== END 2020-10-11 18:23 | disposition home or self-care (01) ==
LOC: EDBD → EDUNIT# → ED 13:43
DX: U07.1 COVID-19 (principal); J12.82 Pneumonia due to coronavirus disease 2019; R53.1 Weakness; M62.838 Other muscle spasm; M54.5 Low back pain
CPT/HCPCS: 36415; 72157; 72158; 80053; 81003; 81025; 82803; 83690; 83735; 85025; 96361; 96374; 96375; 96376; 99284; A9585; J2060; J8499; 81001; 87086

== ENCOUNTER 2022-01-26 14:33 | Emergency (ER) | payer OTHER ==
[2022-01-26] MEDS ORDERED: LIDOCAINE PATCH 5% TOP STA (17:31)
--- NOTE | 2022-01-26 17:33 | ED Physician Documentation ---
PD HPI BACK PAIN - Stated complaint Stated Complaint: ABD/BACK PX - Chief complaint Chief Complaint: Back Pain - History obtained from History obtained from: Patient - Additional information Additional information: Patient is a 26-year-old female with no significant past medical history presenting for evaluation of low back pain that started suddenly while she was doing a lift at the gym. Patient had already done 1 rep At the same weight and was starting her second wrap when she felt a sudden pain in her low back. She reports feeling the pain more when she is in a certain sitting position. The pain does not radiate elsewhere. She denies loss of bowel or bladder control. She denies radiation to her legs. She denies abdominal pain, nausea or vomiting. She also reports mild discomfort at the left lateral thigh. She is able to ambulate without difficulty. She denies a history of prior back issues. Review of Systems Constitutional: denies: Fever Nose: denies: Congestion Cardiac: denies: Chest pain / pressure Respiratory: denies: Dyspnea GI: denies: Abdominal Pain : denies: Dysuria Musculoskeletal: reports: Back pain Neurologic: denies: Headache PD PAST MEDICAL HISTORY - Past Medical History Cardiovascular: None Respiratory: None Neuro: None Endocrine/Autoimmune: None GI: None [employer]: None : None HEENT: None Psych: None Musculoskeletal: None Derm: None - Past Surgical History Past Surgical History: Yes Ortho: ACL reconstruction - Present Medications Home Medications: Ambulatory Orders Medication Instructions Recorded Confirmed tiZANidine [Zanaflex] 4 mg PO Q8H PRN #12 tablet 10/09/20 Ketorolac [Toradol] 10 mg PO Q4HR PRN 10/11/20 10/11/20 LORazepam [Ativan] 1 mg PO TID PRN #20 tablet 10/11/20 Lidocaine Patch 5% [Lidoderm Patch] 1 patch TOP DAILY PRN #10 patch 01/26/22 - Allergies Allergies/Adverse Reactions: Allergies Allergy/AdvReac Type Severity Reaction Status Date / Time loracarbef [From Lorabid] Allergy Hives Verified 01/26/22 15:09 - Social History Does the pt smoke?: No Smoking Status: Never smoker Does the pt drink ETOH?: Yes Does the pt have substance abuse?: No - Immunizations Immunizations are current?: Yes - POLST Patient has POLST: No PD ED PE NORMAL - General General: Alert and oriented X 3, No acute distress, Well developed/nourished - HEENT HEENT: Atraumatic - Neck Neck: Supple, no meningeal sign - Cardiac Cardiac: RRR, Strong equal pulses - Respiratory Respiratory: No respiratory distress, Clear bilaterally - Abdomen Abdomen: Soft, Non tender - Back Back: No spinal TTP, Other (Left lower lumbar tenderness to palpation with no deformities) - Derm Derm: Warm and dry - Extremities Extremities: No deformity, No tenderness to palpate, Normal ROM s pain, No calf tenderness / cord, Other (Pedal pulses intact) - Neuro Neuro: No motor deficit, No sensory deficit Results - Vitals Vitals: Vital Signs - 24 hr 01/26/22 01/26/22 15:06 17:49 Temperature 36.2 C L 36.7 C Heart Rate 61 65 Respiratory 16 16 Rate Blood Pressure 142/82 H 124/70 O2 Saturation 100 100 Oxygen O2 Source Room air PD MEDICAL DECISION MAKING - ED course ED course: Patient presenting for low back pain after lifting heavy weights. Has a normal neuro exam. She is ambulatory with no abdominal tenderness. Offered x-ray but patient declined which I agree is reasonable as I do not suspect a fracture.Patient was counseled on continuing with supportive care as well as concerning Symptoms to return for. Departure - Departure Disposition: 01 Home, Self Care Clinical Impression: Low back strain Qualifiers: Encounter type: initial encounter Qualified Code(s): S39.012A - Strain of muscle, fascia and tendon of lower back, initial encounter Condition: Stable Instructions: ED Low Back Pain Injury Prescriptions: Lidocaine Patch 5% [Lidoderm Patch] 1 patch TOP DAILY PRN #10 patch PRN Reason: pain Comments: You were evaluated for low back pain. A number of things can cause low back pain in this area including injuries to the disc or muscles and ligaments of the low back. I do not think you have a broken bone and did not feel an x-ray would be helpful. I would recommend conservative treatment with anti-inflammatories, ice or heat, lidocaine patches and avoiding any activities that may exacerbate your back pain. I will put you on light duty for the next several days and would recommend follow-up with your primary care through the [facility] or [facility] if the pain is continuing. You may need further testing such as an MRI which would be done as an outpatient. If you have any new or worsening symptoms please return to the ER. Forms: Activity restrictions Discharge Date/Time: 01/26/22 17:50
[2022-01-26 17:50] VITALS: BP 124/70
== END 2022-01-26 17:50 | disposition home or self-care (01) ==
LOC: ED 14:33
DX: S39.012A Strain of muscle, fascia and tendon of lower back, initial encounter (principal); X50.0XXA Overexertion from strenuous movement or load, initial encounter; Y93.B3 Activity, free weights; Y92.39 Other specified sports and athletic area as the place of occurrence of the external cause
CPT/HCPCS: 99282; 99283; A9270